=== PATIENT | female | born 1955 | race Caucasian/White ===

== ENCOUNTER 2024-08-22 07:35 | Emergency (ER) | payer MEDICARE, OTHER ==
[~2024-08-22] VITALS: Ht 172.7 cm; Wt 60.0 kg
[2024-08-22] MEDS ORDERED: OMEPRAZOLE40 MG PO (07:41)
[2024-08-22] MEDS ORDERED: LISINOPRIL20 MG PO (07:42)
[2024-08-22] MEDS ORDERED: VENLAFAXINE H37.5 M1 PO (07:42)
[2024-08-22] MEDS ORDERED: LIPITOR20 MG PO (07:43)
[2024-08-22] MEDS ORDERED: SODIUM CHLORIDE 0.9% 1,000 ML IV ONE (08:15)
[2024-08-22 08:17] LABS: BASOPHILS 0.4 % (0-2); EOSINOPHILS 19.5 % (0-6); HEMATOCRIT 36.3 % (35.0-50.0); HEMOGLOBIN 12.4 g/dL (12.0-18.0); MCH 30.5 (27-36); MCHC 34.1 g/dl (30-36); MCV 89.6 fl (81-99); MONOCYTES 10.8 % (0-12); NEUTROPHILS 51.3 % (39-80); PLATELET COUNT 194 K/uL (140-440); RBC 4.05 M/ul (4.3-5.7); RDW 13.3 (10.5-15.0)
[2024-08-22 08:41] LABS: ALBUMIN 3.4 g/dL (3.4-5.0); ALBUMIN/GLOBULIN RATIO 0.97 (1.1-2.4); ANION GAP 13.7 (7-21); BILIRUBIN, TOTAL 0.4 mg/dL (0.2-1.0); BUN/CREATININE RATIO 22.72 (6.0-28.6); CALCIUM 9.1 mg/dL (8.5-10.1); CREATININE, SERUM 1.1 mg/dL (0.55-1.02); POTASSIUM 3.7 mmol/L (3.5-5.1); PROTEIN, TOTAL 6.9 g/dL (6.4-8.2)
[2024-08-22 09:11] VITALS: BP 140/88
== END 2024-08-22 09:14 | disposition home or self-care (01) ==
LOC: ED 07:35
PROVIDERS: Emergency Medicine
DX: R19.7 Diarrhea, unspecified (principal); I10 Essential (primary) hypertension; Z79.899 Other long term (current) drug therapy
CPT/HCPCS: 36415; 80053; 85025; 87045; 87046; 96360; 99284-25; J7030

== ENCOUNTER 2024-10-17 07:25 | Day surgery (SDC) | payer MEDICARE, OTHER ==
[2024-10-09 15:17] VITALS: BP 140/74
[~2024-10-17] VITALS: Ht 172.7 cm; Wt 61.4 kg
--- NOTE | ~2024-10-17 | EKG ---
[facility] [address] [facility] [place], [place] [address] Draft EK completed, results pending confirmation PATIENT NAME: GERARDO MORAN Electrocardiogram DATE OF : 51 PHYSICIAN: PRELIMINARY REPORT #: [id number] REPORT IS CONFIDENTIAL AND NOT TO BE RELEASED WITHOUT AUTHORIZATION
[~2024-10-17 07:25] MED LIST: ALENDRONATE SOD70 MG PO; CALCIUM500 M1 PO; HYDROXYZINE HCL25 MG PO; IBLOOD GLUCOSE TEST STRIP 1 EA TEST VI PRN; LACTATED RINGER'S 1,000 ML IV SCH; LIDOCAINE HCL 1% 5 ML SDV INJ ONE; LIPITOR20 MG PO; LISINOPRIL20 MG PO; MAGNESIUM400 MG PO; OMEPRAZOLE40 MG PO; VENLAFAXINE H37.5 M1 PO; VIT D3-VIT K21 EACH PO
--- NOTE | 2024-10-17 07:28 | NUR ---
PT NOT AVAILABLE FOR VISIT. PROVIDED PRAYER.
[2024-10-17 07:38] VITALS: BP 158/79
[2024-10-17 08:02] LABS: ALBUMIN 4.2 g/dL (3.4-5.0); ALBUMIN/GLOBULIN RATIO 0.95 (1.1-2.4); ANION GAP 13.6 (7-21); BILIRUBIN, TOTAL 0.5 mg/dL (0.2-1.0); BUN/CREATININE RATIO 16.8 (6.0-28.6); CALCIUM 9.2 mg/dL (8.5-10.1); CREATININE, SERUM 1.19 mg/dL (0.55-1.02); POTASSIUM 4.6 mmol/L (3.5-5.1); PROTEIN, TOTAL 8.6 g/dL (6.4-8.2)
[2024-10-17] MEDS ORDERED: propofoL 200 MG/20 ML VIAL ONE (08:40)
[2024-10-17] MEDS ORDERED: LIDOCAINE HCL 2% 5 ML SDV ONE (08:40)
--- NOTE | 2024-10-17 09:13 | NUR ---
10/17/24 0913 Tatiana Dow 0908-PATIENT ARRIVED TO PACU ON RA RR EVEN. PATIENT REACTIVE TO VERBAL STIMULI TALKING SOFTLY. DENIES PAIN OR NAUSEA. LAYING LEFT LATERAL. IVFINFUSING. ABDOMEN SOFT. SR. PATIENT DOZES BACK TO SLEEP.
[2024-10-17 09:57] VITALS: BP 172/70
--- NOTE | 2024-10-18 13:57 | OR ---
[facility] [address] [place] [address] Signed DATE OF OPERATION: 10/17/2024 SURGEON: Steve Myrick DO PREOPERATIVE DIAGNOSIS: Colon cancer screening. POSTOPERATIVE DIAGNOSIS: Colon cancer screening with nonspecific colitis. PROCEDURE PERFORMED: Mason colonoscopy. ANESTHESIA: IV sedation. ESTIMATED BLOOD LOSS: None. DRAINS: None. COMPLICATION: None. DESCRIPTION OF PROCEDURE: The patient was brought to the GI lab, placed in the supine position. After induction of IV sedation as per Anesthesia, she was placed in left lateral position and digital rectal exam was performed, essentially unremarkable, no masses noted. The Olympus colonoscope was then introduced into the rectum directed to the length of sigmoid, descending colon, transverse colon, ascending colon down into the cecum under direct visualization without difficulty. On examination of the cecum, no intrinsic or extrinsic mass was appreciated. Terminal ileum was unremarkable. Scope was brought back into the ascending colon, no intrinsic or extrinsic masses were appreciated. Some mild nonspecific colitis was noted. Scope was brought back into the transverse colon, no intrinsic or extrinsic masses were appreciated. Some mild to moderate nonspecific colitis noted as well. Scope was brought back through splenic flexure into the descending colon, no intrinsic or extrinsic masses were appreciated. Scope was brought back into the sigmoid colon, some moderate nonspecific colitis was noted, but no intrinsic or extrinsic masses were appreciated. Scope was brought back into the Electronically Signed By: STEVE MYRICK DO 10/18/24 1357 PATIENT NAME: GERARDO MORAN OPERATIVE REPORT DATE OF : 51 REPORT #: [id number] PHYSICIAN: STEVE MYRICK DO PCP: CATALINA GARCIA MD REPORT IS CONFIDENTIAL AND NOT TO BE RELEASED WITHOUT AUTHORIZATION [facility] [address] [place] [address] Signed rectosigmoid, no intrinsic or extrinsic masses were noted. Scope was brought into the rectal vault, no masses noted. The colon was decompressed. Scope was withdrawn in its entirety. The patient tolerated the procedure well and went to recovery room in satisfactory condition. Steve Myrick DO RS/MODL /[id number] Copies: ~ Electronically Signed By: STEVE MYRICK DO 10/18/24 1357 PATIENT NAME: GERARDO MORAN OPERATIVE REPORT DATE OF : 51 REPORT #: [id number] PHYSICIAN: STEVE MYRICK DO PCP: CATALINA GARCIA MD REPORT IS CONFIDENTIAL AND NOT TO BE RELEASED WITHOUT AUTHORIZATION
--- NOTE | 2024-10-18 20:21 | EKG ---
[facility] [address] [facility] [place], [place] [address] Signed Normal sinus rhythm Possible Left atrial enlargement Nonspecific T wave abnormality Abnormal ECG When compared with ECG of 17-OCT-2024 07:46, (Unconfirmed) No significant change was found Confirmed by Pantera Lo DO ([id number]) on 10/18/2024 8:21:00 PM Electronically Signed By: PANTERA LO DO 10/18/242020 PATIENT NAME: GERARDO MORAN Electrocardiogram DATE OF : 51 PHYSICIAN: PANTERA LO DO REPORT #: [id number] REPORT IS CONFIDENTIAL AND NOT TO BE RELEASED WITHOUT AUTHORIZATION
== END 2024-10-17 10:10 | disposition home or self-care (01) ==
LOC: DS 07:25
PROVIDERS: Registered Nurse; ATTEND Surgery
PROC: 0DJD8ZZ Inspection of Lower Intestinal Tract, Via Natural or Artificial Opening Endoscopic (ICD-10-PCS; principal; 2024-10-17 08:40)
DX: Z12.11 Encounter for screening for malignant neoplasm of colon (principal); K52.9 Noninfective gastroenteritis and colitis, unspecified; E78.2 Mixed hyperlipidemia; F32.9 Major depressive disorder, single episode, unspecified; I10 Essential (primary) hypertension; Z87.891 Personal history of nicotine dependence; Z79.899 Other long term (current) drug therapy
CPT/HCPCS: 36415; 80053; 93005; 93010; J2003; J2704; J7121